=== PATIENT | male | born 1980 | race Caucasian/White ===

== ENCOUNTER 2016-11-23 07:42 | Emergency (ER) | payer SELFPAY ==
[2016-11-23] MEDS ORDERED: TORADOL IM ONE (09:31)
[2016-11-23 09:57] VITALS: BP 132/78
--- NOTE | 2016-11-23 10:01 | Emergency Department Report ---
HPI - General Chief Complaint: Extremity Injury, Upper Time Seen by Provider: 11/23/16 08:36 - HPI HPI: 36 year old male presents today complaining of right forearm pain and swelling 1 month. Patient was seen as in ER in [place] and was diagnosed with right distal ulnar fracture on 10/15/2016. Patient states he did not follow up with orthopedic and would like his arm to be casted. Denies numbness, weakness , paresthesias. Denies fever, chills, nausea, vomiting, chest pain, shortness of breath, abdominal pain. ED Past Medical Hx - Past Medical History Hx Hypertension: No Hx Heart Attack/AMI: No Hx Congestive Heart Failure: No Hx Diabetes: No Hx Deep Vein Thrombosis: No Hx Asthma: No Hx COPD: No Hx HIV: No Additional medical history: ATRIAL FIB - Surgical History Past Surgical History?: No Hx Coronary Stent: No Hx Pacemaker: No Hx Internal Defibrillator: No - Social History Smoking Status: Current Every Day Smoker Substance Use Type: Alcohol - Medications Home Medications: Home Medications Medication Instructions Recorded Confirmed Last Taken Type Metoprolol [Lopressor TAB] 12.5 mg PO BID #60 tablet 07/30/14 05/28/15 Unknown Rx traMADol [Ultram 50 MG tab] 50 mg PO Q6HR PRN #20 tablet 11/23/16 Unknown Rx ED Review of Systems ROS: Stated complaint: RT ARM POSS BROKEN Other details as noted in HPI Constitutional: denies: chills, fever, malaise Eyes: denies: eye pain ENT: denies: ear pain, throat pain, congestion Respiratory: denies: cough, shortness of breath, wheezing Cardiovascular: denies: chest pain, palpitations Endocrine: no symptoms reported Gastrointestinal: denies: abdominal pain, nausea, vomiting Musculoskeletal: arthralgia Neurological: denies: headache, weakness, numbness, paresthesias Physical Exam - Physical Exam Vital Signs: Vital Signs 11/23/16 11/23/16 07:45 09:51 Temperature 97.9 F Pulse Rate 105 H Respiratory 17 20 Rate Blood Pressure 132/87 O2 Sat by Pulse 96 Oximetry Physical Exam: GENERAL: The patient is well-developed and well-nourished. Patient is in NAD. HEAD: Normocephalic. Atraumatic. CHEST/LUNGS: Clear to auscultation throughout. HEART/CARDIOVASCULAR: Regular rate and rhythm. No murmurs, rubs or gallops. ABDOMEN: Abdomen is soft, nontender. Bowel sounds normoactive. No guarding or rebound tenderness. RIGHT UPPER EXTREMITY: Full, wrist and digit range of motion. Tenderness to palpation over the distal ulnar aspect right forearm. Normal sensation. 2 point discrimination intact. Peripheral pulses intact. Capillary refill less than 2 seconds. NEURO: Alert and oriented x 3. Normal gait. ED Course Vital Signs 11/23/16 11/23/16 07:45 09:51 Temperature 97.9 F Pulse Rate 105 H Respiratory 17 20 Rate Blood Pressure 132/87 O2 Sat by Pulse 96 Oximetry ED Medical Decision Making - Lab Data Vital Signs 11/23/16 11/23/16 11/23/16 07:45 09:51 09:57 Temperature 97.9 F Pulse Rate 105 H 84 Respiratory 17 20 20 Rate Blood Pressure 132/87 Blood Pressure 132/78 [Left] O2 Sat by Pulse 96 100 Oximetry - Medical Decision Making 36-year-old male presents today with a right distal ulnar fracture. Explained to patient that we can put his arm in a splint and referred him to an orthopedic injury which is to follow up with. Patient expressed understanding. Patient was given Toradol and reports some pain relief. Patient is in no acute distress at this time. He will be discharged home and is encouraged to follow up with a primary care provider. He will be sent home on tramadol and is encouraged to return to the emergency room for any worsening symptoms. Critical care attestation.: If time is entered above; I have spent that time in minutes in the direct care of this critically ill patient, excluding procedure time. ED Disposition Clinical Impression: Distal end of ulna fracture, closed Qualifiers: Encounter type: subsequent encounter Fracture morphology: unspecified fracture morphology Laterality: right Fracture healing: with routine healing Qualified Code(s): S52.601D - Unspecified fracture of lower end of right ulna, subsequent encounter for closed fracture with routine healing Disposition: DISCHARGED TO HOME OR SELFCARE Is pt being admited?: No Does the pt Need Aspirin: No Condition: Stable Instructions: Arm Fracture in Adults (ED) Additional Instructions: Follow up with primary care provider. Return to the Emergency Department if symptoms worsen. Prescriptions: traMADol [Ultram 50 MG tab] 50 mg PO Q6HR PRN #20 tablet PRN Reason: Pain Referrals: PRIMARY CARE, [Primary Care Provider] - 3-5 Days SVETA COTA MD [Staff Physician] - 3-5 Days Forms: Work/School Release Form(ED) Time of Disposition: 09:58
== END 2016-11-23 10:00 | disposition home or self-care (01) ==
LOC: ED 07:42
DX: S52.601D Unspecified fracture of lower end of right ulna, subsequent encounter for closed fracture with routine healing (principal); F17.200 Nicotine dependence, unspecified, uncomplicated
CPT/HCPCS: 29125; 96372; 99283; J1885